=== PATIENT | female | born 1955 | race Native Hawaiian/Other Pacific Islander ===

== ENCOUNTER 2020-03-06 19:30 | Emergency (ER) | payer OTHER ==
[~2020-03-06] VITALS: Ht 157.5 cm; Wt 49.9 kg
[2020-03-06 21:43] LABS: PLATELET COUNT 259 K/uL (152-353)
[2020-03-06 21:53] LABS: POTASSIUM 4.1 mmol/L (3.6-5.2)
[2020-03-06 22:30] VITALS: BP 125/56; TEMP 98
[2020-03-07] MEDS ORDERED: PROTONIX20 MG PO (10:48)
[2020-03-07] MEDS ORDERED: ASPIRIN 81 LOW81 MG PO (10:49)
[2020-03-07] MEDS ORDERED: CLOP75TA2 PO (10:50)
[2020-03-07] MEDS ORDERED: ISOS30TA17 PO (10:53)
[2020-03-07] MEDS ORDERED: MAGN400T4 PO (10:55)
[2020-03-07] MEDS ORDERED: POTASSIUM CHLO20 ME2 PO (11:07)
[2020-03-07] MEDS ORDERED: VENLAFAXINE H37.5 MG PO (11:09)
[2020-03-07] MEDS ORDERED: CLON0.5T36 PO (11:11)
[2020-03-07] MEDS ORDERED: PREG75CA PO (11:12)
[2020-03-07] MEDS ORDERED: PRAVACHOL20 MG PO (11:14)
[2020-03-07] MEDS ORDERED: NOVOLOG FL100 UNIT/M SC (11:21)
[2020-03-07] MEDS ORDERED: GLUCOSE15 GM/33 G PO (11:26)
[2020-03-07] MEDS ORDERED: ACCU-CHEK COMBO XX (11:27)
[2020-03-07] MEDS ORDERED: INSU300I SC (11:28)
[2020-03-07] MEDS ORDERED: MYLANT3 PO (11:28)
[2020-03-07] MEDS ORDERED: MAGNSUS68 PO (11:30)
[2020-03-07] MEDS ORDERED: TYLENOL325 MG PO (11:31)
[2020-03-07] MEDS ORDERED: FINGERSTIX (12:28)
== END 2020-03-06 22:30 | disposition still patient (30) ==
LOC: ED 20:09
PROVIDERS: Emergency Medicine Emergency Medical Services
DX: R45.851 Suicidal ideations (principal); F32.89 Other specified depressive episodes; Z11.59 Encounter for screening for other viral diseases; Z04.6 Encounter for general psychiatric examination, requested by authority
CPT/HCPCS: 36415; 80053; 85027; 87635; 93005; 99283; U0003

== ENCOUNTER 2020-07-01 11:46 | Emergency (ER) | payer OTHER ==
[~2020-07-01] VITALS: Ht 157.5 cm; Wt 51.7 kg
[~2020-07-01 11:46] MED LIST: ACCU-CHEK COMBO XX; ASPIRIN 81 LOW81 MG PO; CHOL100034 PO; CLON0.5T36 PO; CLOP75TA2 PO; CYAN10009 IM; FINGERSTIX; GLUCOSE15 GM/33 G PO; INSU300I SC; ISOS30TA17 PO; MAGN400T4 PO; MAGNSUS68 PO; MYLANT3 PO; NOVOLOG FL100 UNIT/M SC; POTASSIUM CHLO20 ME2 PO; PRAVACHOL20 MG PO; PREG75CA PO; PROTONIX20 MG PO; TYLENOL325 MG PO; VENL37.511 PO; VENLAFAXINE H37.5 MG PO
[2020-07-01 12:35] LABS: PLATELET COUNT 241 K/uL (152-353)
[2020-07-01 12:40] LABS: POTASSIUM 4.6 mmol/L (3.6-5.2)
[2020-07-01 13:15] VITALS: BP 123/52; TEMP 97
[2020-07-01] MEDS ORDERED: INSULIN ASPART SC (15:35)
[2020-07-01] MEDS ORDERED: PANTOPRAZOLE SO20 MG PO (15:37)
[2020-07-01] MEDS ORDERED: CLOPIDOGREL75 MG PO (15:44)
[2020-07-01] MEDS ORDERED: LEXAPRO20 MG PO (15:46)
[2020-07-01] MEDS ORDERED: ISOS30TA17 PO (15:47)
[2020-07-01] MEDS ORDERED: MAG OXIDE400 MG PO (15:49)
[2020-07-01] MEDS ORDERED: POTASSIUM CHLO20 ME1 PO (15:52)
[2020-07-01] MEDS ORDERED: VENLAFAXINE H37.5 MG PO (15:54)
[2020-07-01] MEDS ORDERED: D31000 UNIT PO (15:57)
[2020-07-01] MEDS ORDERED: CLON0.5T36 PO (15:59)
[2020-07-01] MEDS ORDERED: DICYCLOMINE HYD10 MG PO (16:00)
[2020-07-01] MEDS ORDERED: LYRICA75 MG PO (16:01)
[2020-07-01] MEDS ORDERED: LEVEMIR FL100 UNIT/M SC (16:03)
[2020-07-01] MEDS ORDERED: PRAVACHOL20 MG PO (16:04)
[2020-07-01] MEDS ORDERED: PROBIOTI3 PO (16:05)
[2020-07-01] MEDS ORDERED: GLUTOSE PO (16:10)
[2020-07-01] MEDS ORDERED: GERI-LANTA PO (16:12)
[2020-07-01] MEDS ORDERED: MILK OF MAGNESI1 SU1 PO (16:13)
[2020-07-01] MEDS ORDERED: ALPR0.5T24 PO (16:15)
[2020-07-01] MEDS ORDERED: TYLENOL325 MG PO (16:16)
[2020-07-06] MEDS ORDERED: VENL37.511 PO (08:40)
[2020-07-06] MEDS ORDERED: OLAN2.5T2 PO (08:40)
[2020-07-06] MEDS ORDERED: CLON0.5T36 PO (08:40)
[2020-07-06] MEDS ORDERED: MELATONIN MAXIMU5 MG PO (08:40)
[2020-07-06] MEDS ORDERED: CHOL100034 PO (08:41)
[2020-07-06] MEDS ORDERED: CEPH500C20 PO (08:42)
== END 2020-07-01 13:16 | disposition still patient (30) ==
LOC: ED 11:46
PROVIDERS: Hospitalist
DX: R46.89 Other symptoms and signs involving appearance and behavior (principal); R10.84 Generalized abdominal pain; Z11.59 Encounter for screening for other viral diseases; Z04.6 Encounter for general psychiatric examination, requested by authority
CPT/HCPCS: 36415; 80053; 81000; 85027; 87077; 87086; 87088; 87186; 87635; 93005; 99283; U0003